=== PATIENT | female | born 1985 | race Caucasian/White ===

== ENCOUNTER 2020-09-16 19:05 | Inpatient (IN) | payer OTHER ==
[2020-09-16] MEDS: ELECTROLYTE-148 SOLN 1,000 ML IV SCH (20:15)
[2020-09-16] MEDS ORDERED: AMPICILLIN SODIUM 2 GM VIAL ONE (21:10)
[2020-09-16] MEDS ORDERED: OXYTOCIN 30 UNITS in 0.9% NS 30 UNIT/500 ML INFUS.BAG IVPB ONE (21:11)
[2020-09-16 21:19] VITALS: BMI 34.0
[2020-09-16] MEDS ORDERED: PROMETHAZINE HCL 25 MG/1 ML VIAL IVPUSH ONE (21:32)
[2020-09-16] MEDS ORDERED: BUTORPHANOL TARTRATE 1 MG/ML VIAL IVPB ONE (21:32)
[2020-09-16] MEDS ORDERED: AMPICILLIN - 2 GM in SODIUM CHLORIDE 100 ML IVPB ONE (21:37)
[2020-09-16] MEDS ORDERED: OXYTOCIN 30 UNITS in 0.9% NS 30 UNIT/500 ML INFUS.BAG IVPB SCH (21:45)
[2020-09-16] MEDS ORDERED: DEXTROSE 5%-LACTATED RINGERS 1,000 ML IV SCH (21:45)
[2020-09-16] MEDS: AMPICILLIN - 1 GM in SODIUM CHLORIDE 100 ML IVPB SCH (22:45)
[2020-09-17] MEDS: AMPICILLIN - 1 GM in SODIUM CHLORIDE 100 ML IVPB SCH ×5 (01:30→17:12)
[2020-09-17] MEDS ORDERED: AMPICILLIN SODIUM 1 GM VIAL ONE ×5 (02:12→17:02)
[2020-09-17] MEDS: ELECTROLYTE-148 SOLN 1,000 ML IV SCH (05:00)
[2020-09-17] MEDS: LEVOTHYROXINE NA 50 MCG TABLET (FP) PO SCH (07:54)
[2020-09-17] MEDS ORDERED: OXYTOCIN 30 UNITS in 0.9% NS 30 UNIT/500 ML INFUS.BAG IVPB ONE (10:57)
[2020-09-17] MEDS ORDERED: FENTANYL/BUPIVACAINE/NS/PF - PCEA - 50 ML DISP.SYRIN EP ONE ×2 (13:07→18:19)
[2020-09-17] MEDS ORDERED: PCA PUMP NR ONE ×2 (13:07→19:24)
[2020-09-17] MEDS ORDERED: NALOXONE HCL 0.4 MG/ML VIAL IVPUSH PRN (13:29)
[2020-09-17] MEDS ORDERED: BUPIVACAINE HCL/PF 0.25% (2.5MG/ML) 10 ML VIAL ONE (13:31)
[2020-09-17 13:33] LABS: INR 0.92 (0.83-1.09); PROTHROMBIN TIME (PATIENT) 11.3 SEC (9.7-13.0)
[2020-09-17 13:51] LABS: CALCIUM 8.7 mg/dL (8.5-10.1)
[2020-09-17 13:52] LABS: ALBUMIN 2.4 g/dl (3.4-5.0)
[2020-09-17 13:54] LABS: BLOOD UREA NITROGEN 6.5 mg/dL (7-18)
[2020-09-17 13:55] LABS: CREATININE 0.8 mg/dL (0.55-1.3)
[2020-09-17] MEDS: FENTANYL/BUPIVACAINE/NS/PF - PCEA - 50 ML DISP.SYRIN EP SCH (13:55)
[2020-09-17 13:56] LABS: BILIRUBIN,TOTAL 0.9 mg/dL (0.2-1); TOT PROT 6.2 g/dl (6.4-8.2)
[2020-09-17] MEDS ORDERED: PHENYLEPHRINE HCL 10 MG/1 ML SINGLE DOSE VIAL ONE ×2 (14:06→20:08)
[2020-09-17] MEDS ORDERED: ePHEDrine SULFATE 50 MG/1 ML AMPULE ONE (14:07)
[2020-09-17 14:44] LABS: HIV INTERPRETATION NEGATIVE (NEGATIVE)
[2020-09-17] MEDS ORDERED: OXYTOCIN 20 UNITS in 0.9% NS 20 UNIT/1,000 ML INFUS.BAG IV ONE ×2 (19:24→20:04)
[2020-09-17] MEDS ORDERED: WITCH HAZEL 50% (TUCKS) 40 PAD/JAR PAD TP PRN (20:17)
[2020-09-17] MEDS ORDERED: BENZOCAINE 28 GM HEMORRHOIDAL OINTMENT PR PRN (20:17)
[2020-09-17] MEDS ORDERED: oxyCODONE HCL 5 MG TABLET PO PRN ×2 (20:17)
[2020-09-17] MEDS ORDERED: diphenhydrAMINE HCL 25 MG CAPSULE (FP) PO PRN (20:17)
[2020-09-17] MEDS ORDERED: METHYLERGONOVINE MALEATE 0.2 MG/1 ML AMP IM PRN (20:17)
[2020-09-17] MEDS ORDERED: IBUPROFEN 800 MG/8 ML IJ IVPB PRN (20:17)
[2020-09-17] MEDS ORDERED: BENZOCAINE 20% 57 GM BOTTLE TP PRN (20:17)
[2020-09-17] MEDS ORDERED: ceFAZolin SODIUM 1 GM VIAL ONE (20:23)
[2020-09-17] MEDS ORDERED: OXYTOCIN 10 UNITS/ML VIAL ONE ×2 (20:23→20:42)
[2020-09-17] MEDS ORDERED: OXYTOCIN 20 UNITS in 0.9% NS 20 UNIT/1,000 ML INFUS.BAG IV SCH (20:30)
[2020-09-17] MEDS ORDERED: ONDANSETRON 4 MG/2 ML VIAL ONE (20:55)
[2020-09-17] MEDS ORDERED: KETOROLAC TROMETHAMINE 30 MG/1 ML VIAL ONE (20:55)
[2020-09-17] MEDS ORDERED: MIDAZOLAM HCL 2 MG/2 ML SINGLE DOSE VIAL ONE (20:56)
[2020-09-17 21:13] LABS: CORD BASE EXCESS -3.9 mmol/L (0-2); CORD HCO3 23.7 mmHg (20-29); CORD PCO2 52.7 mmHg (30-78); CORD pH 7.27 (7.14-7.44)
[2020-09-17 21:14] LABS: CORD BASE EXCESS -2.9 mmol/L (0-2); CORD HCO3 23.6 mmHg (20-29); CORD PCO2 47.3 mmHg (30-78); CORD pH 7.315 (7.14-7.44)
[2020-09-17] MEDS ORDERED: SODIUM BICARBONATE 8.4% 50 MEQ/50 ML VIAL ONE (21:33)
[2020-09-17] MEDS ORDERED: IBUPROFEN 600 MG TABLET (FP) PO PRN (21:58)
[2020-09-17] MEDS ORDERED: ONDANSETRON 4 MG/2 ML VIAL IVPUSH PRN (21:58)
[2020-09-18] MEDS: DEXTROSE 5%-LACTATED RINGERS 1,000 ML IV SCH ×2 (01:05→21:00)
[2020-09-18] MEDS: ELECTROLYTE-148 SOLN 1,000 ML IV SCH ×2 (01:05→22:00)
[2020-09-18] MEDS: CEFAZOLIN 1 GM/D5W 1 GM/50 ML BAG IVPB SCH ×2 (05:04→12:02)
[2020-09-18] MEDS: LEVOTHYROXINE NA 50 MCG TABLET (FP) PO SCH (06:12)
[2020-09-18 08:51] LABS: EOS % 0.1 % (0-4.5); HEMATOCRIT 27.9 % (32.4-45.2); HEMOGLOBIN 9.4 GM/dL (10.7-15.3); LYMPH % 7.6 % (8-40); MCH 26.7 pg (25.7-33.7); MCHC 33.6 g/dl (32.0-36.0); MEAN CELL VOLUME 79.3 fl (80-96); MEAN PLT VOLUME 7.9 fl (7.5-11.1); MONO % 5.3 % (3.8-10.2); PLATELET COUNT 252 K/MM3 (134-434); RBC 3.51 M/mm3 (3.60-5.2); RDW 14.3 % (11.6-15.6); WHITE BLOOD COUNT 16.7 K/mm3 (4.0-10.0)
[2020-09-18] MEDS: IBUPROFEN 600 MG TABLET (FP) PO PRN ×2 (12:24→20:45)
[2020-09-18] MEDS: SIMETHICONE 80 MG TAB.CHEW (FP) PO PRN ×2 (12:25→20:46)
[2020-09-18] MEDS: ACETAMINOPHEN 325 MG TABLET (FP) PO PRN ×2 (12:25→20:45)
[2020-09-18] MEDS: FENTANYL/BUPIVACAINE/NS/PF - PCEA - 50 ML DISP.SYRIN EP SCH (14:00)
[2020-09-18] MEDS ORDERED: BISACODYL 10 MG SUPP.RECT PR PRN (20:17)
[2020-09-18] MEDS: FERROUS SO4 325 MG TABLET (FP) PO SCH (21:30)
[2020-09-19] MEDS: SIMETHICONE 80 MG TAB.CHEW (FP) PO PRN ×3 (01:01→20:13)
[2020-09-19] MEDS: IBUPROFEN 600 MG TABLET (FP) PO PRN ×4 (01:02→20:13)
[2020-09-19] MEDS: ACETAMINOPHEN 325 MG TABLET (FP) PO PRN ×4 (01:02→20:13)
[2020-09-19] MEDS: LEVOTHYROXINE NA 50 MCG TABLET (FP) PO SCH (06:28)
[2020-09-19] MEDS: FERROUS SO4 325 MG TABLET (FP) PO SCH ×3 (09:15→20:15)
[2020-09-19] MEDS ORDERED: SENNOSIDES/DOCUSATE COMBO (SENNA PLUS) TABLET (UD) PO PRN (22:00)
[2020-09-20] MEDS: SIMETHICONE 80 MG TAB.CHEW (FP) PO PRN ×2 (00:17→06:33)
[2020-09-20] MEDS: IBUPROFEN 600 MG TABLET (FP) PO PRN ×3 (00:18→10:36)
[2020-09-20] MEDS: LEVOTHYROXINE NA 50 MCG TABLET (FP) PO SCH (06:20)
[2020-09-20] MEDS: ACETAMINOPHEN 325 MG TABLET (FP) PO PRN ×2 (06:33→10:36)
[2020-09-20 09:05] LABS: BASO % 0.4 % (0-2.0); EOS % 1.5 % (0-4.5); HEMATOCRIT 30.5 % (32.4-45.2); HEMOGLOBIN 10.2 GM/dL (10.7-15.3); LYMPH % 16.4 % (8-40); MCH 26.8 pg (25.7-33.7); MCHC 33.3 g/dl (32.0-36.0); MEAN CELL VOLUME 80.3 fl (80-96); MEAN PLT VOLUME 8.7 fl (7.5-11.1); MONO % 4.6 % (3.8-10.2); NEUT % 77.1 % (42.8-82.8); PLATELET COUNT 316 K/MM3 (134-434); RBC 3.79 M/mm3 (3.60-5.2); RDW 14.4 % (11.6-15.6); WHITE BLOOD COUNT 12.5 K/mm3 (4.0-10.0)
[2020-09-20 10:36] VITALS: BP 107/66; PULSE 79; TEMP 97.9
[2020-09-20] MEDS: FERROUS SO4 325 MG TABLET (FP) PO SCH (10:36)
== END 2020-09-20 13:30 | disposition home or self-care (01) | DRG 788 ==
LOC: JLDR 19:05 → J3W 09-17 23:32
PROVIDERS: ADMIT Obstetrics & Gynecology; ATTEND Obstetrics & Gynecology
PROC: 10D00Z1 Extraction of Products of Conception, Low, Open Approach (ICD-10-PCS; principal; 2020-09-17)
PROC: 10907ZC Drainage of Amniotic Fluid, Therapeutic from Products of Conception, Via Natural or Artificial Opening (ICD-10-PCS; 2020-09-17)
DX: O33.8 Maternal care for disproportion of other origin (principal); O62.1 Secondary uterine inertia; O48.0 Post-term pregnancy; Z3A.40 40 weeks gestation of pregnancy; Z37.0 Single live birth; O90.81 Anemia of the puerperium; D64.9 Anemia, unspecified; O99.284 Endocrine, nutritional and metabolic diseases complicating childbirth; E03.9 Hypothyroidism, unspecified; O99.824 Streptococcus B carrier state complicating childbirth; O99.344 Other mental disorders complicating childbirth; F41.9 Anxiety disorder, unspecified
CPT/HCPCS: 36415; 36600; 80053; 82803; 85025; 85610; 85730; 87389; 88307-TC